=== PATIENT | male | born 1980 | race Caucasian/White ===

== ENCOUNTER → 2016-03-20 | Outpatient (CLI) | payer OTHER, BC ==
--- NOTE | 2016-03-20 09:52 | DI ---
XR ANKLE COMPLETE MIN 3VW,03/20/2016 9:19 AM: Clinical History: Left distal fibular fracture. Previous Exam: March 14, 2016 Findings: 3 views of the left ankle are obtained, and demonstrate a slightly displaced fracture of the left dis navdeep fibula. Overlying soft tissue swelling is noted. Impression: Slightly displaced fracture of the left distal fibula.
== END ==
LOC: ORTHO 09:28
PROVIDERS: ATTEND Physician Assistant
DX: S82.492A Other fracture of shaft of left fibula, initial encounter for closed fracture (principal); X50.1XXA Overexertion from prolonged static or awkward postures, initial encounter; Y93.H3 Activity, building and construction; Y92.9 Unspecified place or not applicable; Y99.0 Civilian activity done for income or pay
CPT/HCPCS: 73610

== ENCOUNTER → 2016-04-02 | Outpatient (CLI) | payer OTHER ==
--- NOTE | 2016-04-02 15:58 | DI ---
LEFT ANKLE, 04/02/2016 2:37 PM: Clinical History: Acute left ankle pain. Followup avulsion fracture at the tip of the fibula. Previous Exam: 03/20/2016. 3 views are submitted. The soft tissue swelling over the lateral malleolus has diminished substantial ly. There has been no change in the appearance of the avulsion fracture at the tip of the fibula. The ankle mortise is intact. There is no ankle effusion. Reading: Small avulsion fracture fragment at the tip of the fibula. Alignment and position are anatomic and th ere has been no change.
== END ==
LOC: RAD 14:38
PROVIDERS: ATTEND Physician Assistant
DX: S82.832D Other fracture of upper and lower end of left fibula, subsequent encounter for closed fracture with routine healing (principal)
CPT/HCPCS: 73610

== ENCOUNTER → 2016-04-21 | Outpatient (CLI) | payer OTHER ==
--- NOTE | 2016-04-21 14:02 | DI ---
XR ANKLE COMPLETE MIN 3VW,04/21/2016 11:29 AM: Clinical History: Avulsion fracture of the distal fibula with healing. Previous Exam: April 02, 2016 Findings: 3 views of the left ankle are obtained, and demonstrate a small avulsion fracture involving the dista l left fibula. Overlying soft tissue swelling is noted. The tibiotalar joint is intact. Impression: Avulsion fracture of the left distal fibula.
== END ==
LOC: ORTHO 12:13
PROVIDERS: ATTEND Orthopaedic Surgery
DX: S82.832D Other fracture of upper and lower end of left fibula, subsequent encounter for closed fracture with routine healing (principal); M79.89 Other specified soft tissue disorders
CPT/HCPCS: 73610

== ENCOUNTER → 2016-05-09 | Outpatient (CLI) | payer OTHER ==
--- NOTE | 2016-05-09 09:37 | DI ---
XR ANKLE COMPLETE MIN 3VW,05/09/2016 9:11 AM: Clinical History: Old and fracture of the left distal fibula. Previous Exam: April 21, 2016 Findings: 3 views of left ankle are obtained, and demonstrate a stable avulsion fracture of the left distal fib concetta with overlying soft tissue swelling. Impression: Stable avulsion fracture left distal fibula.
== END ==
LOC: ORTHO 09:19
PROVIDERS: ATTEND Orthopaedic Surgery
DX: S82.832D Other fracture of upper and lower end of left fibula, subsequent encounter for closed fracture with routine healing (principal)
CPT/HCPCS: 73610